=== PATIENT | male | born 2000 | race Caucasian/White ===

== ENCOUNTER 2018-06-13 16:36 | Inpatient (IN) | payer OTHER ==
[2018-06-13 18:13] LABS: HEMATOCRIT 44.8 % (42.0-52.0); MEAN CORPUSCULAR HEMOGLOBIN 30.6 pg (27.0-33.0); MEAN CORPUSCULAR HGB CONC 35.7 g/dl (32.0-36.5); MEAN CORPUSCULAR VOLUME 85.7 fl (80.0-96.0); PLATELET COUNT, AUTOMATED 278 10^3/uL (150-450); RED BLOOD COUNT 5.23 10^6/uL (4.30-6.10); RED CELL DISTRIBUTION WIDTH 12.5 % (11.5-14.5); WHITE BLOOD COUNT 8.8 10^3/uL (4.0-10.0)
[2018-06-13 18:37] LABS: AMPHETAMINES LEVEL URINE NEGATIVE (NEGATIVE); BARBITURATES URINE NEGATIVE (NEGATIVE); BENZODIAZEPINES URINE NEGATIVE (NEGATIVE); CANNABINOIDS URINE NEGATIVE (NEGATIVE); COCAINE METABOLITE URINE NEGATIVE (NEGATIVE); METHADONE URINE NEGATIVE (NEGATIVE); OPIATES URINE NEGATIVE (NEGATIVE); PHENCYCLIDINE URINE NEGATIVE (NEGATIVE)
[2018-06-13 18:54] LABS: ACETAMINOPHEN LEVEL < 2.0 UG/ML (10.0-30.0); ALBUMIN 4.4 GM/DL (3.2-5.2); ALBUMIN/GLOBULIN RATIO 1.52 (1.00-1.93); ALKALINE PHOSPHATASE 102 U/L (45-117); ALT/SGPT 25 U/L (12-78); ANION GAP 9 MEQ/L (8-16); AST/SGOT 30 U/L (7-37); BILIRUBIN,DIRECT 0.2 MG/DL (0.0-0.2); BLOOD UREA NITROGEN 18 MG/DL (7-18); CALCIUM LEVEL 8.9 MG/DL (8.5-10.1); CARBON DIOXIDE LEVEL 28 MEQ/L (21-32); CHLORIDE LEVEL 103 MEQ/L (98-107); CREATININE FOR GFR 1.12 MG/DL (0.70-1.30); ETHYL ALCOHOL (ETHANOL) < 0.003 % (0.000-0.010); GLUCOSE, FASTING 92 MG/DL (70-100); POTASSIUM SERUM 3.9 MEQ/L (3.5-5.1); SALICYLATE LEVEL < 1.7 MG/DL (5.0-30.0); SODIUM LEVEL 140 MEQ/L (136-145); THYROID STIMULATING HORMONE 0.492 uIU/ML (0.463-3.98); TOTAL PROTEIN 7.3 GM/DL (6.4-8.2)
[2018-06-13] MEDS ORDERED: ACETAMINOPHEN TAB 650MG DOSE (2X325MG) PO (20:30)
[2018-06-13] MEDS ORDERED: MOM 30ML SUSPENSION UDC PO (20:30)
[2018-06-13] MEDS ORDERED: MAALOX 30 ML SUSP *UDC PO (20:30)
[2018-06-14] MEDS: NICOTINE 21MG/24HR 1 EA TRANSDERMAL TD (10:30)
[2018-06-15] MEDS: NICOTINE 21MG/24HR 1 EA TRANSDERMAL TD (08:12)
[2018-06-15] MEDS: SERTRALINE HCL 25 MG TABLET PO (13:12)
[2018-06-16] MEDS: SERTRALINE HCL 25 MG TABLET PO (08:08)
[2018-06-16] MEDS: NICOTINE 21MG/24HR 1 EA TRANSDERMAL TD (08:08)
[2018-06-17] MEDS: SERTRALINE HCL 25 MG TABLET PO (08:17)
[2018-06-17] MEDS: NICOTINE 21MG/24HR 1 EA TRANSDERMAL TD (08:17)
[2018-06-18] MEDS: traZODone 50 MG TAB PO ×2 (00:28→22:19)
[2018-06-18] MEDS: NICOTINE 21MG/24HR 1 EA TRANSDERMAL TD (08:54)
[2018-06-18] MEDS: SERTRALINE HCL 25 MG TABLET PO (08:54)
[2018-06-19] MEDS: NICOTINE 21MG/24HR 1 EA TRANSDERMAL TD (08:47)
[2018-06-19] MEDS: SERTRALINE HCL 25 MG TABLET PO (08:47)
[2018-06-19] MEDS: traZODone 50 MG TAB PO (23:02)
[2018-06-20] MEDS: NICOTINE 21MG/24HR 1 EA TRANSDERMAL TD (08:59)
[2018-06-20] MEDS: SERTRALINE HCL 25 MG TABLET PO (08:59)
== END 2018-06-20 11:10 | disposition home or self-care (01) | DRG 881 ==
LOC: M ED 16:36 → M ED INP 20:18 → M PSY 22:01
PROVIDERS: Psychiatry & Neurology Psychiatry
DX: F32.9 Major depressive disorder, single episode, unspecified (principal); R45.851 Suicidal ideations; F17.200 Nicotine dependence, unspecified, uncomplicated

== ENCOUNTER 2018-11-13 13:33 | Emergency (ER) | payer OTHER ==
[~2018-11-13] VITALS: Ht 172.7 cm; Wt 71.4 kg
[~2018-11-13 13:33] MED LIST: SERT25TA PO; TRAZO50TA PO
[2018-11-13] MEDS ORDERED: ACE65ERTAB PO (13:37)
[2018-11-13] MEDS ORDERED: NAPR-885 PO (13:37)
[2018-11-13] MEDS ORDERED: IBUP-1022 PO (13:37)
--- NOTE | 2018-11-13 14:15 | REP ---
Right tibia-fibula of four views History: Fall There is a nondisplaced fracture at the junction of the middle and distal thirds of the fibula. There is a fracture of the posterior malleolus. There is widening of the medial ankle joint space consistent with a ligamentous injury. Soft tissue swelling is present. Impression: 1. Fracture of the fibula. 2. Posterior tibial fracture. There is widening of the medial knee joint space consistent with a ligamentous injury. Electronically Signed by Jessee Porter MD 11/13/2018 02:06 P
--- NOTE | 2018-11-13 14:23 | REP ---
RIGHT ANKLE, FOUR VIEWS: HISTORY: Pain. There is a fracture of the posterior malleolus. There is no dislocation. There is widening of the medial joint space consistent with a ligamentous injury. Soft tissue swelling is present. IMPRESSION: Posterior malleolus fracture. There is widening of the medial joint space consistent with a ligamentous injury. Electronically Signed by Jessee Porter MD 11/13/2018 02:28 P
[2018-11-13] MEDS ORDERED: NORCO, ANEXSIA 5/325MG TABLET (HYDROcodone/ACETAMINOPHEN) PO ONE (14:30)
[2018-11-13 14:58] VITALS: BP 152/63
[2018-11-13] MEDS ORDERED: NORCOTAB PO (15:05)
== END 2018-11-13 15:17 | disposition home or self-care (01) ==
LOC: M ED 13:33
DX: S82.831A Other fracture of upper and lower end of right fibula, initial encounter for closed fracture (principal); S82.301A Unspecified fracture of lower end of right tibia, initial encounter for closed fracture; W10.8XXA Fall (on) (from) other stairs and steps, initial encounter; Y92.018 Other place in single-family (private) house as the place of occurrence of the external cause; F17.210 Nicotine dependence, cigarettes, uncomplicated